=== PATIENT | female | born 1960 | race Caucasian/White ===

== ENCOUNTER 2021-03-03 12:38 | Emergency (ER) | payer OTHER ==
[2021-03-03 12:51] VITALS: BMI 34.3
[2021-03-03] MEDS ORDERED: SODIUM CHLORIDE 1,000 ML IV STA (13:25)
[2021-03-03] MEDS ORDERED: KETOROLAC TROMETHAMINE 30 MG/1 ML VIAL IVPUSH ONE (13:25)
[2021-03-03] MEDS ORDERED: KETOROLAC TROMETHAMINE 30 MG/1 ML VIAL ONE (13:55)
[2021-03-03 14:26] LABS: BASO % 0.4 % (0-2.0); HEMATOCRIT 41.4 % (32.4-45.2); HEMOGLOBIN 14.5 GM/dL (10.7-15.3); LYMPH % 13.7 % (8-40); MCH 30.2 pg (25.7-33.7); MEAN CELL VOLUME 86.4 fl (80-96); MEAN PLT VOLUME 8.1 fl (7.5-11.1); MONO % 8.1 % (3.8-10.2); NEUT % 76.8 % (42.8-82.8); PLATELET COUNT 240 10^3/uL (134-434); RBC 4.78 M/mm3 (3.60-5.2); RDW 14.5 % (11.6-15.6); WHITE BLOOD COUNT 10.7 K/mm3 (4.0-10.0)
[2021-03-03 14:35] LABS: CALCIUM 9.1 mg/dL (8.5-10.1)
[2021-03-03 14:36] LABS: ALBUMIN 4.2 g/dl (3.4-5.0)
[2021-03-03 14:39] LABS: CREATININE 0.8 mg/dL (0.55-1.3)
[2021-03-03 14:41] LABS: BILIRUBIN,TOTAL 0.4 mg/dL (0.2-1); TOT PROT 7.8 g/dl (6.4-8.2)
[2021-03-03 15:57] VITALS: BP 152/96; PULSE 70; TEMP 98
[2021-03-03 16:20] LABS: URINE APPEARANCE CLEAR; URINE BILIRUBIN NEGATIVE (NEGATIVE); URINE COLOR YELLOW; URINE GLUCOSE (UA) NEGATIVE (NEGATIVE); URINE KETONE NEGATIVE (NEGATIVE); URINE LEUK ESTERASE NEGATIVE (NEGATIVE); URINE NITRITE NEGATIVE (NEGATIVE); URINE PROTEIN NEGATIVE (NEGATIVE); URINE UROBILINOGEN 0.2 mg/dL (0.2-1.0)
== END 2021-03-03 16:24 | disposition home or self-care (01) ==
LOC: JER 12:38
PROC: 3E033NZ Introduction of Analgesics, Hypnotics, Sedatives into Peripheral Vein, Percutaneous Approach (ICD-10-PCS; principal; 2021-03-03)
PROC: 3E0337Z Introduction of Electrolytic and Water Balance Substance into Peripheral Vein, Percutaneous Approach (ICD-10-PCS; 2021-03-03)
DX: K57.92 Diverticulitis of intestine, part unspecified, without perforation or abscess without bleeding (principal); R10.32 Left lower quadrant pain
CPT/HCPCS: 36415; 74176-TC; 80053; 81003; 83690; 84703; 85025; 87086; 96361; 96372; 99284-25

== ENCOUNTER 2023-09-19 12:39 | Emergency (ER) | payer OTHER ==
[2023-09-19 12:47] VITALS: BMI 29.0
[2023-09-19] MEDS ORDERED: ACETAMINOPHEN INJECTION 100 ML IVPB ONE (14:22)
[2023-09-19] MEDS ORDERED: METOCLOPRAMIDE HCL INJECTION 10 MG/2 ML VIAL ONE (14:22)
[2023-09-19] MEDS: ACETAMINOPHEN 1000 MG/100 ML BAG IVPB ONE (14:55)
[2023-09-19] MEDS: METOCLOPRAMIDE HCL INJECTION 10 MG/2 ML VIAL IVPUSH ONE (14:55)
[2023-09-19 15:35] VITALS: PULSE 67; RESP 16
[2023-09-19 17:12] LABS: BASO % 0.5 % (0-2.0); EOS % 1.7 % (0-4.5); HEMATOCRIT 40.4 % (32.4-45.2); HEMOGLOBIN 13.2 GM/dL (10.7-15.3); MCH 29.3 pg (25.7-33.7); MCHC 32.6 g/dl (32.0-36.0); MEAN CELL VOLUME 89.8 fl (80-96); MEAN PLT VOLUME 8.3 fl (7.5-11.1); MONO % 6.9 % (3.8-10.2); NEUT % 56.9 % (42.8-82.8); PLATELET COUNT 189 10^3/uL (134-434); RDW 13.7 % (11.6-15.6)
[2023-09-19 17:13] LABS: CHLORIDE 121 mmol/L (98-107); POTASSIUM 3.4 mmol/L (3.5-5.1); SODIUM 148 mmol/L (136-145)
[2023-09-19 17:15] LABS: ALBUMIN 2.9 g/dl (3.4-5.0); ANION GAP 6 mmol/L (4-13); BLOOD UREA NITROGEN 8.9 mg/dL (7-18); CO2 22 mmol/L (21-32); GLUCOSE,RANDOM 64 mg/dL (74-106)
[2023-09-19 17:18] LABS: CREATININE 0.6 mg/dL (0.55-1.3); SGOT/AST 15 U/L (15-37); SGPT/ALT 19 U/L (13-61)
[2023-09-19 17:20] LABS: TOT PROT 5.2 g/dl (6.4-8.2)
[2023-09-19 17:21] LABS: ALK PHOS 59 U/L (45-117)
[2023-09-19 17:23] LABS: BILIRUBIN,TOTAL 0.2 mg/dL (0.2-1)
[2023-09-19 17:31] LABS: CALCIUM 6.7 mg/dL (8.5-10.1)
[2023-09-19 18:16] LABS: VENOUS O2 SATURATION 54.7 % (70-80); VENOUS PH 7.358 (7.310-7.410)
[2023-09-19 18:28] VITALS: BP 157/74; TEMP 98.3
[2023-09-19 18:35] LABS: POTASSIUM 5.9 mmol/L (3.5-5.1)
[2023-09-19 18:41] LABS: CREATININE 1.1 mg/dL (0.55-1.3)
[2023-09-19 18:42] LABS: BILIRUBIN,TOTAL 0.4 mg/dL (0.2-1)
[2023-09-19 18:53] LABS: ALBUMIN 4.6 g/dl (3.4-5.0); CALCIUM 9.9 mg/dL (8.5-10.1); TOT PROT 8.3 g/dl (6.4-8.2)
== END 2023-09-19 19:33 | disposition home or self-care (01) ==
LOC: JER 12:39
PROC: 3E033NZ Introduction of Analgesics, Hypnotics, Sedatives into Peripheral Vein, Percutaneous Approach (ICD-10-PCS; principal; 2023-09-19)
PROC: 3E033NZ Introduction of Analgesics, Hypnotics, Sedatives into Peripheral Vein, Percutaneous Approach (ICD-10-PCS; 2023-09-19)
DX: I10 Essential (primary) hypertension (principal); G44.209 Tension-type headache, unspecified, not intractable; Z20.822 Contact with and (suspected) exposure to COVID-19
CPT/HCPCS: 0241U-QW; 36415; 71046-TC-FY; 80053; 82330; 82803; 84484; 85025; 93005; 93010; 99284-25; J0131